=== PATIENT | male | born 1990 | race Caucasian/White ===

== ENCOUNTER 2019-05-15 08:54 | Emergency (ER) | payer SELFPAY ==
--- NOTE | ~2019-05-15 | XR_ITS ---
EXAMINATION: XR chest 2V DATE: 05/15/2019 09:32 INDICATION: Cough and fever TECHNIQUE: AP and lateral views of the chest are obtained. COMPARISON: None available FINDINGS: The lungs are free of acute opacities. There is no pleural effusion or pneumothorax. The ca rdiomediastinal silhouette is normal. The visualized bones and soft tissues are unremarkable. IMPRESSION: 1. No acute cardiopulmonary abnormality. Reviewed, dictated and finalized at location A. [employer] [facility]
[2019-05-15 09:13] VITALS: BP 102/66; PULSE 136; RESP 20; TEMP 38; O2SAT 98
--- NOTE | 2019-05-15 09:19 | ED.FEVER ---
HPI - Fever General Chief Complaint: Fever Stated Complaint: possible strep throat Time Seen by Provider: 05/15/19 09:11 Source: patient Mode of arrival: ambulatory Limitations: no limitations History of Present Illness HPI Narrative: Elia is a 29-year-old male patient. He presents ambulatory to the emergency room. He states that he has been sick since yesterday. He had a fever up to 102.3? F. he has had no vomiting. However his throat hurts and he cannot swallow much. He appears to be dry clinically. He has had no diarrhea. He has had a mild cough. Breath sounds are slightly decreased posteriorly at the left base. No abdominal pain. MD elicited complaint: fever and weakness Measured temperature: 102.4 C Context: other ( No history of travel. Denies any sick contacts.) Exacerbating factors: swallowing Relieving factors: other ( Did not take anything at home. Was given IV Rocephin here in the emergency room.) Associated symptoms: sore throat and cough Treatments prior to arrival fever: none Related Data Allergies Allergy/AdvReac Type Severity Reaction Status Date / Time No Known Allergies Allergy Verified 05/15/19 09:24 Review of Systems Review of Systems: All systems reviewed & are unremarkable except as noted in HPI and below Constitutional: Constitutional: Reports as per HPI, Reports fatigue and Reports fever(s) Eyes: Eyes: Reports as per HPI and Denies change in vision ENT: Reports system reviewed and no additional complaints, except as documented, Reports dysphagia and Reports sore throat Cardiovascular: Cardiovascular: Reports as per HPI, Denies chest pain, Reports rapid heart rate and Denies radiating jaw, neck or arm pain Respiratory: Respiratory: Reports as per HPI and Reports cough Gastrointestinal: Gastrointestinal: Reports as per HPI, Denies abdominal pain, Denies diarrhea and Denies vomiting Genitourinary: Genitourinary: Reports no additional male genitourinary complaints, Denies hematuria and Denies dysuria Musculoskeletal: Musculoskeletal: Reports no additional musculoskeletal complaints and Reports myalgias Integumentary/Breasts: Skin/Breast: Reports system reviewed and no additional complaints, except as docu, Denies erythema and Denies rash Neurologic: Reports system reviewed and no additional complaints, except as documented, Denies vertigo, Denies syncope, Denies focal weakness, Denies numbness and Reports weakness Psychiatric: Psychiatric: Reports no additional psychiatric complaints, Denies anxiety and Denies depression Endocrine: Endocrine: Reports no additional endocrine complaints, Denies polydipsia and Denies polyuria Hematologic/Lymphatic: Hematologic/Lymphatic: Reports no additional hematologic/lymphatic complaints, Denies easy bleeding and Denies easy bruising Allergic/Immunologic: Allergic/Immunologic: Reports no additional allergic/immunologic complaints, Denies lip swelling and Denies tongue swelling PMFSH Past Medical History Medical History (Updated 05/15/19 @ 11:01 by Wade Kaye MD) No significant medical problems Surgical History Surgical History (Updated 05/15/19 @ 09:24 by Wade Kaye MD) No history of previous surgery Social History Social History (Updated 05/15/19 @ 09:25 by Wade Kaye MD) Smoking packs per day: 1 Smoking cigarettes per day: 20.0 Smoking status: Current every day smoker Tobacco type: cigarettes Substance use: never Living arrangements: with family Exam Const: General: alert and ill appearing; No diaphoretic Orientation/consciousness: patient oriented x3 Limitations: no limitations HENMT: Ears: external ears normal, TM's normal bilaterally and EAC's normal General nose exam: Normal external nose present Mouth: Yes dry mucous membranes Other: pharynx and tonsils are acutely inflamed and reddened Eyes: Conjunctivae: conjunctivae normal Pupils: Equal, round and reactive pupils present EOM:
[2019-05-15] MEDS: SODIUM CHLORIDE 0.9% IV 1,000 ML 999 ML IV CONT ×2 (09:42→10:40)
[2019-05-15] MEDS: IBUPROFEN 400 MG TABLET 800 MG PO (09:44)
[2019-05-15 09:46] LABS: Influenza Control Valid (Valid)
[2019-05-15 09:50] LABS: Basophils Absolute Auto 0.03 K/mm3 (0.00-0.10); Basophils Percent Auto 0.2 % (0.0-1.0); Hematocrit 40.1 % (40.0-54.0); Hemoglobin 13.9 g/dL (14.0-18.0); Immature Granulocyte Absolute 0.09 K/mm3 (0.00-0.00); Immature Granulocyte Percent A 0.6 % (0.0-0.0); Lymphocytes Absolute Auto 1.31 K/mm3 (1.10-4.50); Lymphocytes Percent Auto 9.2 % (18.0-42.0); Mean Corpuscular HGB Conc 34.7 g/dL (32.0-36.0); Mean Corpuscular Hemoglobin 30.3 pg (27.0-31.0); Mean Corpuscular Volume 87.4 fL (78.0-102.0); Mean Platelet Volume 9.7 fl (8.7-11.0); Monocytes Absolute Auto 1.12 K/mm3 (0.10-0.90); Monocytes Percent Auto 7.9 % (2.0-11.0); Neutrophils Absolute Auto 11.7 K/mm3 (1.7-7.2); Neutrophils Percent Auto 82.1 % (50.0-70.0); Platelet Count Result 193 K/mm3 (150-420); Red Blood Count 4.59 M/mm3 (4.70-6.10); Red Cell Distribution Width 13.3 % (11.6-14.4); White Blood Count 14.3 K/mm3 (4.8-10.8)
[2019-05-15 10:01] LABS: INR 1.1; Partial Thromboplastin Time 35.3 SEC (22.3-31.6)
[2019-05-15 10:03] LABS: Alanine Aminotransferase 27 U/L (16-63); Albumin Level 4.3 g/dL (3.4-5.0); Alkaline Phosphatase 66 U/L (46-116); Anion Gap 14.2 mmol/L (7-16); Aspartate Amino Transferase 30 U/L (15-37); Bilirubin,Total 0.3 mg/dL (0.00-1.00); Blood Urea Nitrogen 16 mg/dL (7-18); CRP < 0.2 mg/dL (0.0-0.9); Calcium 8.8 mg/dL (8.5-10.1); Carbon Dioxide 27 mmol/L (21-32); Chloride 97 mmol/L (98-108); Estimated Glomerular Filt Rate > 60; Glucose 115 mg/dL (70-99); Osmolality Calculated 280 mOsm/kg (285-295); Potassium 4.2 mmol/L (3.5-5.1); Sodium 134 mmol/L (136-145); Total Protein 8.4 g/dL (6.4-8.2)
[2019-05-15 10:08] LABS: Lactic Acid Reflex 0.9 mmol/L (0.4-2.0)
[2019-05-15] MEDS: AMOXICILLIN/CLAVULANATE K 875-125 MG TAB 1 TABLET PO (10:40)
[2019-05-15 10:42] VITALS: BP 106/53; PULSE 97; RESP 16; TEMP 37.7; O2SAT 99
--- NOTE | 2019-05-17 14:01 | PC.NURSE ---
POSITIVE BLOOD CULTURE/POSSIBLE CONTAMINATE RESULTS PROVIDED TO RN TODAY BY LABORATORY. PT DOES NOT HAVE A PCP TO FAX RESULTS TO. RN ATTEMPTED TO CONTACT PT. NO ANSWER/VOICEMAIL WAS LEFT FOR PATIENT TO CONTACT [facility] ED SOON POSSIBLE TO DISCUSS BLOOD CULTURE RESULTS.
--- NOTE | 2019-05-17 16:46 | PC.NURSE ---
PATIENT CALLED BACK TO ED AT THIS TIME. RN SPOKE WITH PATIENT ABOUT BLOOD CULTURE RESULTS. PATIENT EXPLAINS HE IS FEELING MUCH BETTER WITH ANTIBIOTIC RX PROVIDED FROM [facility]. PT PROVIDED RN WITH PCP INFORMATION. DR. ALVARO FERNANDEZ FROM [facility] WAS FAXED THE CULTURE REPORT. COVER SHEET INCLUDED CONTACT NUMBER TO [facility] ED FOR QUESTIONS. PT WAS INSTRUCTED TO MAKE A FOLLOW UP APPOINTMENT WITH PCP.
== END 2019-05-15 11:23 | disposition home or self-care (01) ==
PROVIDERS: Emergency Provider Surgery
DX: J02.0 Streptococcal pharyngitis (principal); E86.0 Dehydration
CPT/HCPCS: 36415; 71046; 80053; 83605; 85025; 85610; 85730; 86140; 87040; 87077; 87186; 87804; 87880; 96360; 96361; 99283; A9270; J7030